=== PATIENT | male | born 1935 | race Caucasian/White ===

== ENCOUNTER 2019-04-12 18:14 | Observation (INO) ==
[2019-04-12] MEDS ORDERED: DUONEB (A & A) INH PRN (18:28)
[2019-04-12] MEDS ORDERED: ATIVAN PO PRN (18:30)
[2019-04-12] MEDS ORDERED: LASIX IV ONE ×2 (18:30→20:00)
[2019-04-12] MEDS: HYDROCODONE/APAP 7.5-325/15 ML PO PRN (20:38)
[2019-04-13] MEDS ORDERED: LASIX IV ONE ×2 (05:00→17:44)
[2019-04-13] MEDS: FLOMAX PO SCH ×2 (10:09→10:11)
[2019-04-13] MEDS: HYDROCODONE/APAP 7.5-325/15 ML PO PRN ×2 (10:23→19:25)
[2019-04-13 12:04] LABS: BASO# 0.04 X1000 (0.0-0.2); BASO% 0.3 % (0.0-0.8); EOS# 0.24 X1000 (0.0-0.7); EOS% 1.8 % (0.0-10.0); HEMATOCRIT 31.3 % (42.0-52.0); HEMOGLOBIN 9.8 g/dL (14.0-18.0); IMM GRAN# 0.03 X1000 (0.0-0.04); IMM GRAN% 0.2 % (0.0-0.5); LYMPH% 10.7 % (20.5-51.1); MCH 23.3 PG (27-31); MCHC 31.3 g/dL (33-37); MCV 74.5 FL (81-99); MONO# 1.12 X1000 (0.11-0.59); MONO% 8.6 % (1.7-9.3); MPV 9.1 FL (7.4-10.4); NEUT% 78.4 % (42.2-75.2); PLT 345 X1000 (130-400); RDW 18.2 % (11.5-14.5); WBC 13.03 X1000 (4.8-10.8)
[2019-04-13 12:14] LABS: AGAP 12; ALBUMIN 3.8 g/dL (3.5-5.0); ALKALINE PHOSPHATASE 174 U/L (32-122); BUN 26 mg/dL (8-22); CALCIUM 9.3 mg/dL (8.8-10.2); CHLORIDE 93 mmol/L (98-107); COSMO 272; CREATININE 1.1 mg/dL (0.7-1.2); ESTIMATED GFR > 60; GLUCOSE 121 mg/dL (70-104); GOT 15 U/L (10-34); GPT 8 U/L (10-44); POTASSIUM 4.3 mmol/L (3.5-5.1); SODIUM 133 mmol/L (136-145); TCO2 28 mmol/L (25-35); TOTAL PROTEIN 7.8 g/dL (6.3-8.3)
[2019-04-14 07:44] LABS: BASO# 0.02 X1000 (0.0-0.2); BASO% 0.2 % (0.0-0.8); EOS% 2.9 % (0.0-10.0); HEMATOCRIT 31.8 % (42.0-52.0); HEMOGLOBIN 9.7 g/dL (14.0-18.0); IMM GRAN# 0.02 X1000 (0.0-0.04); IMM GRAN% 0.2 % (0.0-0.5); LYMPH# 1.18 X1000 (1.2-3.4); LYMPH% 11.3 % (20.5-51.1); MCH 22.7 PG (27-31); MCHC 30.5 g/dL (33-37); MCV 74.5 FL (81-99); MONO# 1.21 X1000 (0.11-0.59); MONO% 11.6 % (1.7-9.3); MPV 9.3 FL (7.4-10.4); NEUT% 73.8 % (42.2-75.2); PLT 344 X1000 (130-400); RBC 4.27 XMIL (4.7-6.1); RDW 18.8 % (11.5-14.5); WBC 10.43 X1000 (4.8-10.8)
[2019-04-14 07:54] LABS: AGAP 15; ALBUMIN 3.7 g/dL (3.5-5.0); ALKALINE PHOSPHATASE 173 U/L (32-122); BUN 31 mg/dL (8-22); CALCIUM 9.2 mg/dL (8.8-10.2); CHLORIDE 94 mmol/L (98-107); COSMO 279; CREATININE 1.1 mg/dL (0.7-1.2); ESTIMATED GFR > 60; GLUCOSE 110 mg/dL (70-104); GOT 14 U/L (10-34); GPT 7 U/L (10-44); POTASSIUM 4.3 mmol/L (3.5-5.1); SODIUM 136 mmol/L (136-145); TCO2 27 mmol/L (25-35); TOTAL PROTEIN 7.2 g/dL (6.3-8.3)
[2019-04-14 09:07] LABS: BASO 1 % (0-1); EOS 3 % (1-10); LYMPHS 13 % (21-51); MONO 6 % (1-9); SEGS 77 % (42-75)
[2019-04-14] MEDS: FLOMAX PO SCH ×2 (09:51→09:53)
[2019-04-14] MEDS: HYDROCODONE/APAP 7.5-325/15 ML PO PRN (11:11)
--- NOTE | 2019-04-14 13:37 | ECHO REPORT ---
ORDER DATE: 04/13/2019 INDICATION: CHF. FINDINGS: 1. The right atrium appears mildly enlarged at 4.4 cm. 2. Mild tricuspid regurgitation. 3. Normal RV size and systolic function. 4. Mild pulmonic insufficiency. 5. Severe left atrial enlargement with a volume index of 60. 6. No mitral prolapse. No mitral stenosis. Moderate mitral regurgitation. 7. Normal LV size. The end-diastolic dimension is 5.1. Moderate left ventricular hypertrophy with a posterior and interventricular septal wall thickness of 1.5 cm each. Significant reduction in LV systolic function with an estimated EF of 20 to 25 percent and global hypokinesis. 8. Aortic valve is calcified, with restriction in motion. The peak gradient across the valve is 26, with a mean of 15. The valve area is 1.0 cm2 by continuity equation. The dimensionless index is 0.22 suggesting the possibility that this could be low output severe aortic stenosis. I do not have a previous echo to compare this to. There does not appear to be any aortic insufficiency. 9. Aorta appears slightly enlarged at 3.8 cm at the root. 10. No pericardial effusion is identified. cc: MD Charlie Velez MD
[2019-04-14 15:46] VITALS: BP 130/51
--- NOTE | 2019-04-15 08:00 | HISTORY AND PHYSICAL ---
Mr. Whitney is an 84-year-old clinic patient of [facility] who has a history of gastric cancer that was inoperable that ultimately led to him having a stent put in his stomach to allow food to pass. He has declined chemotherapy. He was in his usual state of health when he began to get short of breath and pale per his daughters, both of whom work in my office. He was brought in to the office and he had a hematocrit of 24 and we admitted him to the hospital yesterday, 04/11 for a 2 unit blood transfusion and iron therapy which he tolerated and was sent home but he was persistently short of breath. He came back in. We repeated his chest x-ray and he still had cardiomegaly and his basilar infiltrates were more prominent than they had been previously. BNP was greater than 5,000 and we elected to admit him to treat his heart failure. He has no history of heart failure or any therapy regarding heart failure ever. He has not had a heart attack. He had some COPD. He is not on blood pressure medicines. He does not have to our knowledge valvular heart disease or myocarditis. There is a possibility of him having a pericardial effusion with his cancer in that proximity to his heart. We continued his routine meds which were Flomax, hydrocodone, lorazepam and we gave him some Lasix 40 IV after giving him 40 p.o. in the office. PAST MEDICAL HISTORY: Otherwise is unremarkable. ALLERGIES: None. MEDICATIONS: I already previously mentioned. REVIEW OF SYSTEMS: He has generally maintained his weight. No significant weight loss. No issues with eating. He has not run a fever nor has he had any chills nor suspicions that he had any kind of cold type symptoms, simply shortness of breath. NOSE: No postpharyngeal drip. No nasal congestion. OROPHARYNX: No tonsillitis. CARDIOVASCULAR: He denies any chest pain, palpitations, edema, PND or orthopnea. He just gets short of breath with activity, with minimal activity. He has previously been walking up hills near his daughter's [place] the [place]. PULMONARY: He has not got a cough, not spitting up phlegm, just feels short of breath and lightheaded with activity. GASTROINTESTINAL: He is able to swallow. He is being certain he takes soft foods, chews his food and has not had any problems with obstructive symptoms suggesting that his shunt in his stomach was compromised. No bloody stools, black stools, tarry stools. SKIN: No rashes. [employer]: No headaches. No confusion. No strokes. No TIAs. NEUROMUSCULAR: Negative. Somewhat weak. ENDOCRINE: No diabetes. No thyroid disease. No hormone replacement therapy. PAST MEDICAL HISTORY: He has not had any significant health problems. PHYSICAL EXAMINATION: VITAL SIGNS: At the time of admission, his temperature was 98 degrees. His pulse was 83. Respiratory rate is 18. Blood pressure 131/62. O2 sat was 90 on room air. He is 5 feet 11 inches, 85 kilos. HEENT: Normocephalic. Eyes were PERRL. EOMs intact. SC clear. Fundi benign. Nares patent. NECK: Nares patent. Neck supple without carotid bruits, without thyromegaly, lymphadenopathy or jugular venous distention. No supraclavicular nodes. CHEST: Bilateral clear breath sounds. He was not particularly tachypneic. No wheezing. CARDIOVASCULAR: Regular rhythm and rate. No murmurs, gallops, clicks or rubs. ABDOMEN: Soft. No hepatosplenomegaly, no CVA tenderness. EXTREMITIES: Negative for clubbing, cyanosis. NEUROLOGICAL: Intact. ADMITTING DIAGNOSES: 1. Congestive heart failure. 2. History of blood loss anemia. 3. Iron deficiency. 4. History of adenocarcinoma of the stomach. cc: Charlie Hua MD
--- NOTE | 2019-04-15 08:15 | PROGRESS NOTE ---
DATE: 04/15/2019 84-year-old patient of mine who has adenocarcinoma of the stomach, iron deficiency and subsequently anemia with profound dyspnea. Was given blood, 2 units, and Imferon, went home and had some dyspnea. Brought back in because of heart failure. His vital signs on 04/13, temp was 97.9 degrees, pulse was 77, respiratory rate 18, BP 99/43. O2 sat was 96 on nasal cannula 2 liters. Previously, he had been walking and when he presented to the office and desaturating to 74 with walking, but at rest, it is 96 on 2 liters 02 nasal cannula. His hematocrit on 04/13 was 31.3, white count was 13,000 with a relatively normal diff, 78 neutrophils, 10.7 lymphocytes. Platelet count was 345,000. His chemistries: His sodium is 133, potassium 4.3, chloride 93, CO2 28, BUN 26, creatinine 1.1. GFR greater than 60. Glucose 121. Calcium 9.3. Total bilirubin 0.6. AST 15, ALT 8, alkaline phosphatase 174. Total protein normal. His lactate from the previous day was normal. The previous day his BNP was 5853 and currently is 5293. We are continuing to give him Lasix and with the administration of Lasix, he seems to be doing better. We ordered an echo on him. He has never had one previously and we are awaiting report. He seems to be breathing better but that is mostly based on him not moving about. If he moves about, he still gets short of breath. His BNPs are elevated and we will see if we can explain that. cc: Charlie Hua MD
--- NOTE | 2019-04-15 17:49 | DISCHARGE SUMMARY ---
ADMISSION DATE: 04/12/2019 DISCHARGE DATE: 04/14/2019 An 84-year-old clinic patient of [facility] who has known adenocarcinoma of the stomach and has a shunt in his stomach, has refused chemotherapy and radiation therapy. He had been in his usual state of health. Per him, [place], but in the last couple of weeks has gotten significantly short of breath and was brought in, initially with what appeared to be high output heart failure secondary to iron deficiency anemia, secondary to his bleeding from his adenocarcinoma of the stomach. So, he got two units of packed RBCs and tolerated the infusion. He was given some iron IV therapy and sent home, but continued to be short of breath, so he was brought back in the hospital on 04/12/2019 for some IV therapy for what we knew had a little bit of heart failure. We did an echo. His ejection fraction was 20% to 25% with global hypokinesis but more importantly he had severe left atrial enlargement and a calcified aortic valve with restricted motion with a gradient across the valve of 26. The valve area is 1 cm2. So, the dimension index is 0.22, suggests the possibility that he could be having low output secondary to severe aortic stenosis. We discussed that with him and his family. Our current goal is just maintaining his blood count and using as needed Lasix. I think with the blood count his symptoms will improve. Will follow him up in the office. He is to resume his regular medicines which are basically maintenance medicines for pain and anxiety. He will have some p.r.n. Lasix based on weight changes and pulmonary symptoms. cc: Charlie Hua MD
== END 2019-04-14 16:51 | disposition home or self-care (01) ==
LOC: P.DIRADM → P.MEDSURG 18:14
PROVIDERS: ADMIT Internal Medicine; ATTEND Internal Medicine
CPT/HCPCS: 36415; 36430; 71020; 71046; 80053; 82728; 83540; 83550; 83605; 83880; 85025; 86850; 86900; 86901; 86920; 93306; 94761; A9270; J1756; J1940; J7050; P9016

== ENCOUNTER 2019-04-23 11:48 | Inpatient (IN) ==
[2019-04-23] MEDS ORDERED: TYLENOL PO ONE (12:09)
[2019-04-23 12:33] LABS: BE -1.9 mmoll (-3.0-3.0); BLOOD TYPE ARTERIAL; HCO3-(ACT) 23.3 mmoll (20.0-26.0); METHB 1.3 % (0.0-1.5); PCO2(98.6) 24 mmHg (35-45); PO2(98.6) 50 mmHg (60-100); SAMPLE BLOOD; SAO2 88.3 % (95.0-100.0); THB 8.4 g/dL (11.5-17.4); pH(98.6) 7.53 (7.35-7.45)
[2019-04-23 12:37] LABS: ALLEN TEST YES; MODALITY ROOM AIR
[2019-04-23 12:38] LABS: O2HB 84.2 % (95.0-99.0)
--- NOTE | 2019-04-23 13:02 | Diag Imaging Result Doc PS360 ---
EXAM: CHEST-2 VIEWS HISTORY: fever sob chf TECHNIQUE: Chest two views COMPARISON: 04/12/2019 FINDINGS: The lungs are hyperexpanded. The heart is enlarged. There are increased interstitial markings in the lower lungs, right greater than left. These are slightly less pronounced than on the prior study. There is a small right pleural effusion. No change in the right portacatheter. No pneumothorax. IMPRESSION: Slight interval improvement. Electronically signed by Lewis Sosa 04/23/2019 1:00 PM
[2019-04-23 13:17] LABS: BASO# 0.01 X1000 (0.0-0.2); BASO% 0.1 % (0.0-0.8); HEMATOCRIT 24.2 % (42.0-52.0); HEMOGLOBIN 7.7 g/dL (14.0-18.0); IMM GRAN# 0.04 X1000 (0.0-0.04); IMM GRAN% 0.2 % (0.0-0.5); LYMPH# 0.56 X1000 (1.2-3.4); MCHC 31.8 g/dL (33-37); MCV 72.2 FL (81-99); MONO# 1.13 X1000 (0.11-0.59); MPV 9.8 FL (7.4-10.4); NEUT# 17.18 X1000 (1.4-6.5); NEUT% 90.7 % (42.2-75.2); PLT 312 X1000 (130-400); RBC 3.35 XMIL (4.7-6.1); RDW 20.7 % (11.5-14.5); WBC 18.92 X1000 (4.8-10.8)
[2019-04-23] MEDS ORDERED: LASIX IV ONE (13:25)
[2019-04-23 13:37] LABS: INR 1.16; PROTIME 15.4 Seconds (11.0-16.0)
[2019-04-23] MEDS: ROCEPHIN 1 GM in NS 50 ML IV SCH (13:43)
[2019-04-23 14:03] LABS: ALBUMIN 3.2 g/dL (3.5-5.0); CALCIUM 8.3 mg/dL (8.8-10.2); CREATININE 1.6 mg/dL (0.7-1.2); POTASSIUM 5.5 mmol/L (3.5-5.1); TOTAL BILIRUBIN 1.1 mg/dL (0.20-1.00)
--- NOTE | 2019-04-23 15:16 | PROVIDER DOCUMENTATION ---
This chart was entered by Lluvia Martinez Scribe, acting as scribe for Charlie Hua MD. HPI-General Adult - General Chief Complaint: Shortness of Breath Stated Complaint: SOB / CHEST SORE Time Seen by Provider: 04/23/19 12:18 Source: patient, family Allergies/Adverse Reactions: Patient Allergies Allergy/AdvReac Type Severity Reaction Status Date / Time No Known Allergies Allergy Verified 02/02/18 13:37 Home Medications: Home Medication List Medication Instructions Recorded Confirmed Last Taken Type Budesonide/Formoterol Fumarate 80 mcg INH BID MDD 160 06/03/17 04/23/19 04/22/19 History [Symbicort 80-4.5 Mcg Inhaler] Omeprazole 40 mg PO DAILY 02/02/18 04/23/19 04/22/19 History Sucralfate 1 gm PO BID 02/02/18 04/23/19 04/22/19 History Tamsulosin [Flomax] 0.4 mg PO DAILY 02/02/18 04/23/19 04/22/19 History Hydrocodone/Acetaminophen 10 ml PO Q6-8H PRN PRN 04/12/19 04/23/19 04/23/19 02:00 History [Hydrocodon-Acetamin 7.5-325/15] Lorazepam Oral Concentrate 2 ml PO Q8H PRN 04/12/19 04/23/19 04/22/19 History Polyethylene Glycol 3350 [Miralax] 119 gm PO DAILY 04/23/19 04/23/19 Unknown History - History of Present Illness -Gen Adult Nature of Presenting Problems: 84 y/o male presents to the ED with complaint of SOB and chest soreness/tightness. Temp 100.7 on arrival here. The patient has known gastric CA with previous shunt placement. Quality of Pain: reports: other (soreness) Onset/Duration: reports: gradual Timing: reports: still present Context/Activities at Onset: reports: light activity Modifying Factors: worse with: coughing Associated Symptoms: reports: cough, shortness of breath. denies: vomiting Similar Symptoms Previously?: No Recently seen or treated by another doctor?: No Review of Systems - Adult - REVIEW OF SYSTEMS - ADULT Constitutional: reports: no symptoms reported Eyes: reports: no symptoms reported Ears, Nose, Mouth & Throat: reports: no symptoms reported Cardiovascular: reports: no symptoms reported. denies: edema, orthopnea Respiratory: reports: cough, shortness of breath. denies: hemoptysis, wheezing Genitourinary: denies: dysuria, discharge, flank pain, hematuria Integumentary: reports: no symptoms reported Neurological: denies: dizziness/vertigo, headache/migraines, syncope Hematologic/Lymphatic: reports: no symptoms reported Allergic/Immunologic: reports: no symptoms reported Past History - Adult - PAST MEDICAL HISTORY-ADULT Review of Records: reports: Old Records Reviewed, Nursing Assessment Review, Medications Reviewed Major Childhood Illnesses: reports: denies history Cardiovascular: reports: murmur Respiratory: reports: COPD Gastrointestinal: reports: cancer (liver and stomach) Genitourinary: reports: denies history Musculoskeletal: reports: denies history Neurological: reports: denies history - PRIOR SURGERIES/PROCEDURES Surgical/Procedure History: reports: reviewed, not pertinent - IMMUNIZATION STATUS Childhood Immunizations: See Nurse Assessment Flu Vaccine: See Nurse Assessment - FAMILY HISTORY Family History: reviewed, not pertinent - SOCIAL HISTORY Smoking: other (former smoker) Substance Use: denies Physical Exam-General - PHYSICAL EXAM-ADULT Initial Vital Signs Reviewed: Yes - CONSTITUTIONAL General Appearance: appears well - EYES Eyes: PERRL/EOMI - HEAD, EARS, NOSE, MOUTH & THROAT HENMT: normocephalic/atraumatic, moist mucous membranes - NECK Neck: full range of motion - RESPIRATORY Respiratory: decreased breath sounds, rhonchi, wheezing, increased rate - CARDIOVASCULAR Cardiovascular: regular rate, rhythm, tachycardia - GASTROINTESTINAL (ABDOMEN) Abdominal Exam: soft - LYMPHATIC Lymphatic: no adenopathy - MUSCULOSKELETAL Back Exam: normal inspection, no CVA tenderness - SKIN Integumentary: normal color, normal turgor - NEUROLOGIC Neurologic: grossly normal - PSYCHIATRIC Psych/Mental Status: normal thought process Progress - PLAN OF CARE/RESULTS Progress/Plan/Lab Results: Vital Signs - 8 hr 04/23/19 11:55 Temperature 100.7 F H Pulse Rate 100 H Respiratory Rate 18 Blood Pressure 106/62 O2 Sat by Pulse Oximetry 92 L Orders Category Date Time Status Cardiac Monitoring DIRECTED Care 04/23/19 12:09 Active Nursing- Obtain EKG ONCE Care 04/23/19 12:09 Active CHEST-2 VIEWS [RAD] Stat Exams 04/23/19 12:09 Ordered ABG [RESP] Routine Lab 04/23/19 12:09 Ordered BLOOD CULTURE [BLDCUL] Stat Lab 04/23/19 12:09 Uncollected CBC WITH DIFF [HEME] Stat Lab 04/23/19 12:09 Ordered CK PROFILE [SP CHEM] Stat Lab 04/23/19 12:09 Ordered COMPREHENSIVE METABOLIC PANEL [CHEM] Stat Lab 04/23/19 12:09 Uncollected PRO B-NATRIURETIC PEPTIDE Stat Lab 04/23/19 12:09 Uncollected PROTIME WITH INR [COAG] Stat Lab 04/23/19 12:09 Uncollected TROPONIN T Stat Lab 04/23/19 12:09 Ordered Acetaminophen [Tylenol] Med 04/23/19 12:09 Discontinued 1,000 mg PO NOW ONE EKG [EKG] Stat Ther 04/23/19 12:09 Ordered Result Diagrams: 04/23/19 12:47 04/23/19 12:47 - REASSESSMENT Reassessment #1 Time Reassessed: 12:45 Status: unchanged Reassessment Comment: Discussed patient status in length with family Reassessment #2 Time Reassessed: 01:18 Status: unchanged Reassessment Comment: physician at bedside - XRAY 1 XRAY Study: Chest Comparison with other Films: changes noted (EXAM: CHEST-2 VIEWS HISTORY: fever sob chf TECHNIQUE: Chest two views COMPARISON: 04/12/2019 FINDINGS: The lungs are hyperexpanded. The heart is enlarged. There are increased interstitial markings in the lower lungs, right greater than left. These are slightly less pronounced than on the prior study. There is a small right pleural effusion. No change in the right portacatheter. No pneumothorax. IMPRESSION: Slight interval improvement. Electronically signed by Lewis Sosa 04/23/2019 1:00 PM) - CONSULTS/PCP/HOSPITALIST Notification #1 *Consult/PCP/Hospitalist*: Dr. Rush Time Discussed: 14:02 Reason/Comments: GI CA, hyponatremia, possible pneumonia Consult Disposition: Admit Departure - Departure Date of Disposition Decision: 04/23/19 Time of Disposition Decision: 15:15 DIAGNOSIS: Cancer of gastrointestinal tract, CHF (congestive heart failure), Hyponatremia, Pneumonia, Aortic stenosis with trileaflet valve Disposition: ADMITTED INPATIENT 09 Certified Medical Emergency: Emergent Condition: Serious - Critical Care Note This patient required my direct & personal management of CC.: Yes Total Time (mins): 32 Critical Care Statement: This patient required my direct personal management to treat or rule out processes, the absence of which, could potentiallly result in sudden, clinically significant life or limb threatening deterioration. Attestation - Physician/ STEPHANIE Attestation Patient care was provided by Advanced Practice Provider:: No The physician spent face to face time with patient:: Yes Advanced Practice Provider documentation review:: Supervising physician onsite and consulted in the evaluation and care of this patient. The physician did have a face to face encounter with the patient. This chart was documented by the indicated scribe, (Lluvia Martinez, Andrew) and accurately reflects the services I performed and decisions made by me, Charlie Hua MD, as attested by the provider's signature.
[2019-04-23] MEDS: CARAFATE LIQUID PO SCH ×2 (16:46→20:05)
[2019-04-23] MEDS: HYDROCODONE/APAP 7.5-325/15 ML PO SCH ×2 (16:46→20:05)
[2019-04-23] MEDS ORDERED: ASPIRIN PO ONE (17:45)
[2019-04-23] MEDS ORDERED: DOBUTAMINE 500/D5W 500 MG/250 ML IV.SOLN IV SCH (17:45)
--- NOTE | 2019-04-23 18:00 | EKG Report ---
Test Performed on : 04/23/2019 5:56:46 PM Test Reason : CHEST PAIN Blood Pressure : / mmHG Vent. Rate : 085 BPM Atrial Rate : 085 BPM P-R Int : 162 ms QRS Dur : 118 ms QT Int : 372 ms P-R-T Axes : 035 038 155 degrees QTc Int : 442 ms Normal sinus rhythm. Nonspecific intraventricular conduction delay ST & T wave abnormality, consider lateral ischemia Abnormal ECG No previous ECGs available Confirmed by Charlie Hua MD ([id number]) on 04/24/2019 10:21:20 AM
[2019-04-23] MEDS: SYMBICORT 80/4.5 MICROGM INHALER INH SCH (19:30)
[2019-04-23] MEDS: ATIVAN PO PRN (19:47)
[2019-04-23] MEDS: FLOMAX PO SCH (20:05)
--- NOTE | 2019-04-24 06:09 | EKG Report ---
Test Performed on : 04/24/2019 05:56:46 AM Test Reason : chf Blood Pressure : / mmHG Vent. Rate : 087 BPM Atrial Rate : 087 BPM P-R Int : 160 ms QRS Dur : 118 ms QT Int : 360 ms P-R-T Axes : 042 060 -73 degrees QTc Int : 433 ms Normal sinus rhythm. Nonspecific intraventricular conduction delay Nonspecific ST and T wave abnormality Abnormal ECG When compared with ECG of 23-APR-2019 17:56, (Unconfirmed) T wave inversion no longer evident in Anterior leads Confirmed by Charlie Hua MD ([id number]) on 04/24/2019 10:21:33 AM
[2019-04-24 06:38] LABS: CALCIUM 8.3 mg/dL (8.8-10.2); CREATININE 1.5 mg/dL (0.7-1.2); MAGNESIUM 2.2 mg/dL (1.5-2.7); POTASSIUM 4.4 mmol/L (3.5-5.1)
[2019-04-24] MEDS: SYMBICORT 80/4.5 MICROGM INHALER INH SCH ×2 (08:17→19:10)
[2019-04-24] MEDS: HYDROCODONE/APAP 7.5-325/15 ML PO SCH ×2 (11:13→20:15)
[2019-04-24] MEDS: CARAFATE LIQUID PO SCH ×2 (11:14→20:15)
[2019-04-24] MEDS: ASPIRIN PO SCH (11:14)
[2019-04-24] MEDS: LASIX IV SCH ×2 (11:33→20:15)
[2019-04-24] MEDS: ROCEPHIN 1 GM in NS 50 ML IV SCH (15:15)
[2019-04-24] MEDS ORDERED: SAMSCA PO ONE (16:06)
--- NOTE | 2019-04-24 16:09 | PROGRESS NOTE ---
DATE: 04/24/2019 SUBJECTIVE: This is an 84-year-old male who is currently in the Intensive Care Unit on a dobutamine drip. He has congestive heart failure complicated by adenocarcinoma of the stomach. Also, severe aortic stenosis. He was put on the drip to improve his diuresis which has not been very successful with just straight loop diuretics. He has lost a significant amount of weight, looks much better than he did. OBJECTIVE: Vital signs: Stable. Temperature is 98, pulse 92, respiratory rate 14, blood pressure 93/49 on 2L. LABORATORY DATA: Today, his sodium was 126, potassium 4.4, chloride 91, CO2 21, BUN 50, creatinine 1.5, estimated GFR 45, magnesium 2.2, calcium 8.3, albumin was 3.2. BNP is 3500. cc: Charlie Hua MD
[2019-04-24] MEDS: DOBUTAMINE 500/D5W 500 MG/250 ML IV.SOLN IV SCH (16:22)
--- NOTE | 2019-04-24 16:30 | HISTORY AND PHYSICAL ---
HISTORY OF PRESENT ILLNESS: The patient is a clinic patient of [facility] who presented to the emergency room complaining of shortness of breath. He has had some soreness and tightness in his chest. He had a low-grade temperature 100.7 on arrival. He has known adenocarcinoma of the stomach with a shunt through his pylorus. He has increased coughing. He is quickly desaturating, just generally feeling soreness all over. He had recently had an iron infusion followed by a prompt elevation in his RBCs, only to have that fall here recently. He had some heme trace positive stools. In the ER, his temperature was 100.7, pulse was 100, respiratory rate 18, blood pressure 106/62, O2 saturation 92%. He has oxygen at home. Moving around he gets very short of breath. He does not really have significant edema. He has a distended stomach. He is also noted to have a low sodium at 120, potassium 5.5, chloride 86, CO2 19, BUN 49, creatinine 1.6, glucose 145. He has been taking diuretic therapy to try to help his issues, but I think he has more abdominal fluid in his abdomen. His creatinine continues to fall. It is 24.2 and platelet count is 312,000, white count was 18,920. His chest x-ray showed hyperexpanded lungs. Heart was enlarged with increased interstitial markings in the lower lung, right greater than left. This slightly less pronounced than a previous study. There is a small right pleural effusion. No change in the Port-A-Cath. No pneumothorax. ALLERGIES: He has no medication allergies. CURRENT MEDICATIONS: Include, Symbicort 80/4.5 b.i.d., omeprazole 40 daily, Carafate 1 gram p.o. b.i.d., Flomax 0.4 daily, hydrocodone 10 mL p.r.n. q 6 to 8 hours for cancer pain, lorazepam 2 mg p.o. q 8 hours p.r.n. anxiety, and MiraLAX 119 grams p.o. daily. REVIEW OF SYSTEMS: The patient has not had any significant weight loss, but has generally gotten weaker here of late. No fever. No chills. No change in his visual peterson or appearance to his eyes, ears, nose, or throat. No pharyngitis, otitis, or sinusitis. Cardiovascular: No chest pain. No shortness of breath with minimal activity. He has no palpitations. Pulmonary: He has a cough and gets short of breath very easily, desaturates down into 84, per his monitor. He denies any hemoptysis or any wheezing. Genitourinary: No dysuria, pyuria, or flank pain. No hematuria. Skin: No rashes. No lesions. Neurological: Was symmetric, no neurological deficits. He has been having a headache lately in the posterior part of his head. He had a CT of the head that was negative for tumor. Sinus film was likewise negative. He had recent a Depo shot at the greater occipital nerve. Hematological: No clotting or bleeding disorder. Allergies: No asthma. No hay fever. PAST MEDICAL HISTORY: He has the liver and stomach cancer. He has a history of a murmur. Recently we did an echo and he has critical aortic stenosis and LVH, which is compounding his issues with fluids. He has not had any significant surgeries. SOCIAL HISTORY: He is a former smoker. Denies substance abuse. PHYSICAL EXAMINATION: At the time of admission VITAL SIGNS: As previously stated. HEENT: Head was normocephalic. Eyes, ears, nose, and throat had pale conjunctiva, otherwise negative. Nares patent. Oropharynx negative. NECK: Midline trachea. No lymphadenopathy. No jugular venous distention. No thyromegaly. CHEST: Diminished breath sounds throughout. Increased AP diameter. Flat diaphragms. He is tripoding a little bit. CARDIOVASCULAR: He had a regular rhythm and rate. No gallops, clicks, or rubs. He does have a 3/6 murmur at his left sternal border, probably from his aortic stenosis. ABDOMEN: Obese. No hepatosplenomegaly. No CVA tenderness. Positive bowel sounds. EXTREMITIES: Negative for cyanosis, clubbing or edema. NEUROLOGICAL: Intact. ADMITTING DIAGNOSES: 1. Congestive heart failure. 2. Chronic obstructive pulmonary disease. 3. Adenocarcinoma of the stomach with shunt in his pylorus. 4. Anemia, iron loss. We admitted him to the floor intending to diurese and correct his sodium and hematocrit. cc: Charlie Hua MD
--- NOTE | 2019-04-24 16:53 | CARDIOLOGY PROGRESS NOTE ---
DATE: 04/24/2019 SUBJECTIVE: Mr. Whitney reports he feels much better today. He is tolerating oral intake. PHYSICAL: He was actually febrile yesterday. Not febrile today. His heart rate is 86, his blood pressure is 91/53. His I's and O's are negative on the order of a total net negative of 1.7 L.General: No acute distress. Cardiovascular: He sounds to be in a regular rate and rhythm. He does not have any obvious murmurs. He has no S3. He has no lower extremity edema. His extremities seem warmer today. LABS: His sodium is 126, potassium 4.4, BUN 50, creatinine is 1.5 which is slightly better than yesterday. His proBNP continues to be greater than 35,000. He continues on Lasix which has been started at 40 IV b.i.d. He is on dobutamine at 3 mcg. ASSESSMENT: Mr. Whitney is an 84-year-old gentleman who presented in low output heart failure yesterday. PLAN: We will plan on increasing his dobutamine to 5 mcg. Will continue him on the Lasix. I will give him a dose of Samsca today recheck his labs and will plan on discontinuing the dobutamine around 4 p.m. tomorrow which will give him roughly 48 hours worth of medication. I would strongly consider hospice evaluations in this patient given his decisions to forego any further cancer treatment as well as his severe aortic stenosis and heart failure. Unfortunately, his hemodynamics currently are limiting addition of medications. cc: MD Charlie Velez MD
[2019-04-24] MEDS: ATIVAN PO PRN (20:16)
[2019-04-24] MEDS: FLOMAX PO SCH (20:16)
--- NOTE | 2019-04-25 04:13 | CARDIOLOGY CONSULTATION ---
DATE: 04/23/2019 CHIEF COMPLAINT: Shortness of breath . HISTORY OF PRESENT ILLNESS: Mr. Whitney is an 84-year-old white male with a history of gastric cancer that resulted in subsequent esophageal stent. He decided to discontinue treatment around 1 year ago. He reports the onset of shortness of breath it sounds like quite some time ago; ultimately resulted in 2 units of blood as well as a iron therapy. He continued to be short of breath and was found to have some cardiomegaly. An echo was done showing severe aortic stenosis and reduced heart function. He subsequently was admitted for further treatment having continued shortness of breath. He reports some issues with orthopnea. No lower extremity edema. He is a difficult historian, but it sounds like he has had some increased abdominal girth as well as weight gain. PAST MEDICAL HISTORY: His past medical history is significant for: 1. Systolic heart failure. Unclear if this is ischemic or nonischemic. 2. Probable severe low output aortic stenosis as evidenced by echocardiogram in April 2019 showing an EF of 20% to 25%, dimensionless index of 0.22, valve area of 1.0. 3. Gastric cancer, currently not receiving treatment. Last study in August 2018 showing metastases to the right lobe of the liver. 4. COPD. SOCIAL HISTORY: His daughter is present with him today. He does not smoke. FAMILY HISTORY: Family history of hypertension. REVIEW OF SYSTEMS: A 10-system review of systems is negative except for those things mentioned in the HPI. PHYSICAL EXAMINATION: vital signs: He was febrile to 100.7 at noon today. Heart rate 85, blood pressure 93/57, his systolics have been in the 90s to low 100s. His I's and O's are really nonexistent this hospitalization. General: Elderly-appearing male in no acute distress. HEENT: Oropharynx moist. Poor dentition. Eye examination has pink conjunctivae and white sclerae. Neck: His neck examination shows no obvious thyromegaly or thyroid tenderness. Cardiovascular: He sounds to be in a regular rate and rhythm. I do not hear any obvious murmurs. He has very distant heart sounds. He has cool distal extremities from the lower hameed distally. He has no lower extremity edema. His JVP was difficult to visualize. chest: His chest exam is relatively clear to auscultation bilaterally. He has no increased work of breathing. Abdomen: His abdomen is soft, very protuberant, nontender. Skin: Warm and dry throughout without any rashes. Neurologic: He is moving all extremities well. No lateralizing deficits. Psychiatric: Alert and oriented and pleasant. Normal mood and affect. PERTINENT DATA: Chest x-ray shows hyperexpanded lungs, cardiomegaly, increased interstitial markings in the lower lungs right greater and left. Small right pleural effusion. He has no EKG this hospitalization. His laboratory data shows a white count of 18.9, his hematocrit is 24.2 which has steadily declined from the 6th when it was 31.8. He has an iron deficiency anemia it appears based on a low MCV. His INR is 1.1. His ABG was reviewed showing a pH of 7.53, pCO2 of 24. His sodium is 120, his potassium is 5.5, his BUN is 49, and creatinine is 1.6. His troponin is 1.68. His proBNP is greater than 35,000. ASSESSMENT: Mr. Whitney is an 84-year-old gentleman with metastatic gastric cancer, likely severe aortic stenosis, and what appears to be low-output heart failure. PLAN: We will likely transfer him over to the ICU. It seems like he is a DNR. I will insure that they contact Dr. Hua to discuss this with the patient. It appears that it has been ordered today. We will likely start him on an inotrope. Notably, he does have a positive set of cardiac enzymes. The patient appears to be poorly perfusing his kidneys based on his rising creatinine and markedly elevated proBNP as well as low-sodium resulting in volume overload in his current low-output state. I discussed this extensively with the patient as well as the daughter. The patient is a difficult historian and has questionable understanding of the current situation, but it seems his daughter is aware of what is going on and seems to be in agreement with the plan. The patient has had an advanced directive filled out before indicating that he would like to be a DNR. That is what we are currently operating on presently. cc: MD Charlie Velez MD
[2019-04-25 06:28] LABS: BASO# 0.03 X1000 (0.0-0.2); BASO% 0.3 % (0.0-0.8); EOS# 0.22 X1000 (0.0-0.7); HEMATOCRIT 24.8 % (42.0-52.0); HEMOGLOBIN 7.6 g/dL (14.0-18.0); IMM GRAN# 0.03 X1000 (0.0-0.04); IMM GRAN% 0.3 % (0.0-0.5); LYMPH# 1.01 X1000 (1.2-3.4); LYMPH% 9.1 % (20.5-51.1); MCH 22.4 PG (27-31); MCHC 30.6 g/dL (33-37); MCV 73.2 FL (81-99); MONO# 1.22 X1000 (0.11-0.59); MONO% 10.9 % (1.7-9.3); NEUT# 8.65 X1000 (1.4-6.5); NEUT% 77.4 % (42.2-75.2); PLT 386 X1000 (130-400); RBC 3.39 XMIL (4.7-6.1); RDW 20.4 % (11.5-14.5); WBC 11.16 X1000 (4.8-10.8)
[2019-04-25 06:45] LABS: ALBUMIN 3.1 g/dL (3.5-5.0); CALCIUM 8.6 mg/dL (8.8-10.2); CREATININE 1.4 mg/dL (0.7-1.2); POTASSIUM 4.3 mmol/L (3.5-5.1); TOTAL BILIRUBIN 0.3 mg/dL (0.20-1.00); TOTAL PROTEIN 6.8 g/dL (6.3-8.3)
[2019-04-25] MEDS: SYMBICORT 80/4.5 MICROGM INHALER INH SCH ×2 (08:00→19:15)
[2019-04-25] MEDS: HYDROCODONE/APAP 7.5-325/15 ML PO SCH ×2 (08:59→20:07)
[2019-04-25] MEDS: CARAFATE LIQUID PO SCH ×2 (08:59→20:06)
[2019-04-25] MEDS: ASPIRIN PO SCH (09:01)
[2019-04-25] MEDS: LASIX IV SCH ×2 (09:01→20:07)
[2019-04-25] MEDS ORDERED: CITRATE OF MAGNESIA PO ONE (09:24)
[2019-04-25 12:43] LABS: OCCULT BLOOD 1 POSITIVE (NEGATIVE)
[2019-04-25] MEDS ORDERED: SAMSCA PO ONE (13:16)
[2019-04-25] MEDS: ROCEPHIN 1 GM in NS 50 ML IV SCH (14:02)
[2019-04-25] MEDS ORDERED: LANOXIN IV ONE (15:50)
[2019-04-25] MEDS: DOBUTAMINE 500/D5W 500 MG/250 ML IV.SOLN IV SCH (16:13)
[2019-04-25 17:13] LABS: IRON SATURATION 5 %; TIBC 256 ug/dL; TOTAL IRON 14 ug/dL (53-167); UNBOUND IRON 242 ug/dL (112-346)
--- NOTE | 2019-04-25 18:54 | PROGRESS NOTE ---
DATE: 04/25/2019 SUBJECTIVE: The patient reports feeling considerably better. He denies any shortness of breath or chest discomfort. OBJECTIVE: Blood pressure is 107/51, heart rate 86, oxygen saturation 96% on room air. Jugular venous is evident, consistent with elevated central venous pressure. Chest is clear to auscultation. Cardiac: Regular rate and rhythm with a grade 1 to 2/6 systolic murmur at the left upper sternal border and right upper sternal border. No gallop could be appreciated. Extremities are without edema. DIAGNOSTIC DATA: White blood cell count is 11.16, hematocrit 24.8, hemoglobin 7.6, MCV is 73.2, platelet count is 386. Sodium 132, potassium 4.3, chloride 93, carbon dioxide 24, BUN is 46, creatinine 1.4, glucose 108. Pro-B natriuretic peptid level is 29,578. IMPRESSION: 1. Acute on chronic systolic heart failure. The patient still manifests some signs of volume excess, particularly right-sided heart failure. 2. Severe cardiomyopathy. 3. Aortic stenosis. 4. Gastric adenocarcinoma. 5. Significant anemia, microcytic. RECOMMENDATIONS: 1. Continue diuresis as permitted by hemodynamics. 2. Overall prognosis is poor. cc: MD Charlie Connolly MD
[2019-04-25] MEDS: FLOMAX PO SCH (20:06)
[2019-04-26] MEDS: SYMBICORT 80/4.5 MICROGM INHALER INH SCH ×2 (08:12→19:40)
[2019-04-26] MEDS: MIRALAX PO SCH (08:37)
[2019-04-26] MEDS: HYDROCODONE/APAP 7.5-325/15 ML PO SCH ×2 (08:37→20:05)
[2019-04-26] MEDS: LANOXIN PO SCH (08:37)
[2019-04-26] MEDS: CARAFATE LIQUID PO SCH ×2 (08:37→20:01)
[2019-04-26] MEDS: ASPIRIN PO SCH (08:38)
[2019-04-26] MEDS: LASIX IV SCH ×2 (08:38→20:01)
[2019-04-26 09:30] LABS: ALBUMIN 3.6 g/dL (3.5-5.0); CALCIUM 9.1 mg/dL (8.8-10.2); CREATININE 1.2 mg/dL (0.7-1.2); POTASSIUM 4.6 mmol/L (3.5-5.1); TOTAL BILIRUBIN 0.3 mg/dL (0.20-1.00); TOTAL PROTEIN 7.8 g/dL (6.3-8.3)
[2019-04-26 10:36] LABS: BASO# 0.04 X1000 (0.0-0.2); BASO% 0.3 % (0.0-0.8); EOS# 0.33 X1000 (0.0-0.7); EOS% 2.5 % (0.0-10.0); HEMATOCRIT 29.6 % (42.0-52.0); HEMOGLOBIN 8.9 g/dL (14.0-18.0); IMM GRAN# 0.04 X1000 (0.0-0.04); IMM GRAN% 0.3 % (0.0-0.5); LYMPH# 0.99 X1000 (1.2-3.4); LYMPH% 7.6 % (20.5-51.1); MCH 22.4 PG (27-31); MCHC 30.1 g/dL (33-37); MCV 74.4 FL (81-99); MONO# 0.94 X1000 (0.11-0.59); MONO% 7.2 % (1.7-9.3); MPV 8.9 FL (7.4-10.4); NEUT# 10.64 X1000 (1.4-6.5); NEUT% 82.1 % (42.2-75.2); PLT 526 X1000 (130-400); RBC 3.98 XMIL (4.7-6.1); RDW 20.7 % (11.5-14.5); WBC 12.98 X1000 (4.8-10.8)
[2019-04-26 10:40] LABS: ANISOCYTOSIS 1+; LYMPHS 7 % (21-51); MONO 7 % (1-9); SEGS 86 % (42-75)
[2019-04-26 10:41] LABS: POIKILOCYTOSIS OCCASIONAL
--- NOTE | 2019-04-26 13:25 | Diag Imaging Result Doc PS360 ---
EXAM: CHEST-2 VIEWS HISTORY: cough TECHNIQUE: Chest two views COMPARISON: 04/23/2019 FINDINGS: Interval decrease in the right lower lung infiltrates. Cardiomegaly remains. The lungs are hyperexpanded and the pulmonary vessels are small. No change in the right-sided portacatheter. IMPRESSION: Continued interval improvement Electronically signed by Lewis Sosa 04/26/2019 1:23 PM
[2019-04-26] MEDS ORDERED: VENOFER 200 MG in NS 150 ML IV ONE (14:00)
[2019-04-26] MEDS: ROCEPHIN 1 GM in NS 50 ML IV SCH (14:00)
[2019-04-26] MEDS: FLOMAX PO SCH (20:01)
[2019-04-27] MEDS: SYMBICORT 80/4.5 MICROGM INHALER INH SCH ×2 (07:25→20:00)
[2019-04-27] MEDS: MIRALAX PO SCH (08:50)
[2019-04-27] MEDS: LANOXIN PO SCH (08:50)
[2019-04-27] MEDS: LASIX IV SCH ×2 (08:50→20:23)
[2019-04-27] MEDS: ASPIRIN PO SCH (08:50)
[2019-04-27] MEDS: CARAFATE LIQUID PO SCH ×2 (08:50→20:23)
[2019-04-27] MEDS: HYDROCODONE/APAP 7.5-325/15 ML PO SCH (09:00)
[2019-04-27] MEDS: ROCEPHIN 1 GM in NS 50 ML IV SCH (13:57)
[2019-04-27] MEDS ORDERED: ZOFRAN IV ONE ×2 (14:31→16:14)
--- NOTE | 2019-04-27 17:40 | Diag Imaging Result Doc PS360 ---
EXAM: ABDOMEN FLAT/UPRIGHT INDICATION: vomiting, abd pain TECHNIQUE: 3 views COMPARISON: 03/11/2018 FINDINGS: There is a stable Wallstent associated with the pylorus of the stomach. The stomach does not appear to be significantly gas distended. There are unremarkable bowel gas and stool patterns. There is no evidence of bowel obstruction. There is no evidence of large volume free abdominal gas. IMPRESSION: No evidence of acute pathology by plain radiograph. Electronically signed by Saran Machado 04/27/2019 5:38 PM
[2019-04-27] MEDS: PHENERGAN IV PRN ×2 (18:30→23:30)
[2019-04-27] MEDS: SODIUM CHLORIDE 0.9% INJ PRN ×2 (18:31→23:31)
[2019-04-27] MEDS: HYDROCODONE/APAP 7.5-325/15 ML PO PRN ×2 (18:33→23:40)
[2019-04-27] MEDS: FLOMAX PO SCH (20:23)
[2019-04-27] MEDS: NS 1,000 ML IV SCH (21:31)
[2019-04-28] MEDS: NS 1,000 ML IV SCH ×2 (06:31→16:35)
[2019-04-28 07:18] LABS: ALBUMIN 3.3 g/dL (3.5-5.0); CREATININE 1.2 mg/dL (0.7-1.2); TOTAL BILIRUBIN 0.3 mg/dL (0.20-1.00); TOTAL PROTEIN 6.7 g/dL (6.3-8.3)
[2019-04-28 07:19] LABS: BASO# 0.04 X1000 (0.0-0.2); BASO% 0.3 % (0.0-0.8); EOS# 0.14 X1000 (0.0-0.7); EOS% 0.9 % (0.0-10.0); HEMATOCRIT 29.7 % (42.0-52.0); HEMOGLOBIN 8.8 g/dL (14.0-18.0); IMM GRAN# 0.06 X1000 (0.0-0.04); IMM GRAN% 0.4 % (0.0-0.5); LYMPH# 1.34 X1000 (1.2-3.4); MCH 22.2 PG (27-31); MCHC 29.6 g/dL (33-37); MCV 74.8 FL (81-99); MONO# 1.43 X1000 (0.11-0.59); MONO% 9.7 % (1.7-9.3); MPV 9.1 FL (7.4-10.4); NEUT% 79.7 % (42.2-75.2); PLT 576 X1000 (130-400); RBC 3.97 XMIL (4.7-6.1); RDW 21.1 % (11.5-14.5); WBC 14.81 X1000 (4.8-10.8)
[2019-04-28 07:58] LABS: ANISOCYTOSIS 2+; LYMPHS 12 % (21-51); MONO 4 % (1-9); POIKILOCYTOSIS 1+; SEGS 84 % (42-75)
[2019-04-28 07:59] LABS: MICROCYTOSIS 1+
[2019-04-28] MEDS: LASIX IV SCH ×2 (08:16→20:47)
[2019-04-28] MEDS: ASPIRIN PO SCH (08:20)
[2019-04-28] MEDS: CARAFATE LIQUID PO SCH ×2 (08:21→20:46)
[2019-04-28] MEDS: LANOXIN PO SCH (08:21)
[2019-04-28] MEDS: MIRALAX PO SCH (08:23)
[2019-04-28] MEDS: SYMBICORT 80/4.5 MICROGM INHALER INH SCH ×2 (09:47→19:01)
[2019-04-28] MEDS: ROCEPHIN 1 GM in NS 50 ML IV SCH (13:04)
[2019-04-28] MEDS: HYDROCODONE/APAP 7.5-325/15 ML PO PRN ×2 (16:36→22:47)
--- NOTE | 2019-04-28 17:51 | CARDIOLOGY PROGRESS NOTE ---
DATE: 04/28/2019 SUBJECTIVE: Mr. Whitney reports he feels much better today. He has no acute complaints presently. OBJECTIVE: He is afebrile. Heart rate is 84, blood pressure is 112/46.General: He is no acute distress. Cardiovascular: He sounds to be in a regular rate and rhythm. He has a 2/6 systolic murmur at the right upper sternal border. No lower extremity edema. Chest: Exam sounds relatively clear. He has no increased work of breathing. Abdomen: Soft. PERTINENT DATA: White count 14.8, hematocrit is 29. His platelet count is 576,000. His sodium is 134, potassium is 5, BUN 38, creatinine is 1.2. ASSESSMENT: Mr. Whitney is an 84-year-old gentleman who presents with complaints of shortness of breath, was noted to be in heart failure with severe aortic stenosis. PLAN: I will try to add in a low dose of beta-jesús and JHONY inhibitor today to try to improve his medication regimen for heart failure. I agree with continuation of the digoxin for symptom benefit. I do not have any acute recommendations presently. He certainly would be a candidate for palliative services. I will stop his IV fluids. cc: MD Charlie Velez MD
--- NOTE | 2019-04-28 18:13 | PROGRESS NOTE ---
DATE: 04/26/2019 SUBJECTIVE: To date, his microbiology is no growth in his cultures. OBJECTIVE: Vital Signs: Currently temperature is 97.9, pulse 79, respiratory rate 20, BP 123/54, 02 saturation 98% on room air. Respiratory: He is breathing better. He is not gasping for air. LABORATORY DATA: White count 12,980, hematocrit 29.6, platelet count 526. He has a left shift. He had a stool done on April 25 that was positive. Chemistries: Sodium 135, potassium 4.6, chloride 93. CO2 is 29, BUN 41, creatinine 1.2, glucose 146. Albumin is 3.6. His I's and O's are negative today. ASSESSMENT/PLAN: He has not had a chest x-ray. We are going to go ahead and get him a chest x- ray today and take him downstairs and see what his chest x-ray looks like. cc: Charlie Hua MD
--- NOTE | 2019-04-28 18:33 | PROGRESS NOTE ---
DATE: 04/25/2019 SUBJECTIVE: He has improved significantly on his dobutamine drip. He has had some generally negative fluid balance. CBC today, hematocrit is 24.8, white count 11,116, platelet count 386. Sodium 132, potassium 4.3, chloride 93, CO2 24, BUN 46, creatinine 1.4, GFR 49. proBNP 29,578. He is eating, but not eating that much. He is generally much better than he has been. He has had a significant improvement in his hematocrit. No transfusion. His iron studies showed iron of 14 and saturation was 5. We are going to ask Pharmacy to calculate an infusion for some iron. cc: Charlie Hua MD
[2019-04-28] MEDS: FLOMAX PO SCH (20:46)
[2019-04-28] MEDS ORDERED: PRINIVIL PO SCH (21:00)
[2019-04-28] MEDS ORDERED: TOPROL XL PO SCH (21:00)
[2019-04-28] MEDS: PHENERGAN IV PRN (22:47)
[2019-04-29] MEDS: PHENERGAN IV PRN (07:30)
[2019-04-29] MEDS: SODIUM CHLORIDE 0.9% INJ PRN (07:30)
[2019-04-29] MEDS: SYMBICORT 80/4.5 MICROGM INHALER INH SCH (08:56)
[2019-04-29] MEDS: LASIX IV SCH (09:24)
[2019-04-29] MEDS: MIRALAX PO SCH (09:24)
[2019-04-29] MEDS: CARAFATE LIQUID PO SCH (09:24)
[2019-04-29] MEDS: ASPIRIN PO SCH (09:24)
[2019-04-29] MEDS: LANOXIN PO SCH (09:24)
[2019-04-29] MEDS: HYDROCODONE/APAP 7.5-325/15 ML PO PRN (09:25)
--- NOTE | 2019-04-29 09:37 | CARDIOLOGY PROGRESS NOTE ---
DATE: 04/26/2019 CHIEF COMPLAINT: Shortness of breath. SUBJECTIVE: Mr. Whitney is doing much better. He is not on any drip. He is getting some iron supplements. His chest x-ray today shows continued interval improvement. His telemetry shows sinus rhythm. He is sitting at the bedside with his family. He seems to be in a good mood. He is not in any pain or distress. OBJECTIVE: Temperature 97.9 degrees, pulse 79, respirations 20, blood pressure 123/54. Alert, awake, oriented clinically. HEENT: Unremarkable. Chest: Clear to auscultation and percussion. Heart sounds regular rhythm. Soft systolic murmur. Abdomen: Not tender. Extremities: Show no edema. Neurologic: Follows commands. Moves all 4 extremities. LABORATORY DATA: Hemoglobin is 8.9, hematocrit 29.6, MCV 74.4. Sodium is 135, potassium 4.6, BUN 41, creatinine 1.2. Pro-BNP has dropped to 29,508. IMPRESSION: 1. Patient who presented with acute on chronic systolic heart failure. 2. Patient with prior severe aortic stenosis and low ejection fraction. 3. Chronic obstructive pulmonary disease. 4. History of gastric cancer with microcytic/hypochromic anemia. RECOMMENDATION; At this time we will continue present supportive measures. Patient seems to be improving. He can probably be transferred to step-down unit. cc: MD Charlie Coe MD
--- NOTE | 2019-04-29 11:38 | PROGRESS NOTE ---
DATE: 04/28/2019 SUBJECTIVE: He has been accepted to a long-standing facility in [facility]. He is going to go down there to try to rehab a bit since he had this recent setback with dyspnea and vomiting and pain. OBJECTIVE: His vital signs are temperature 97.7, pulse 89, respiratory rate was 12, blood pressure 140/60, O2 saturation 92%. His family is present, his daughter who is his primary taxonomist. We are eager to get him to this facility. LABORATORY DATA: His sodium is 134, potassium 5, chloride 93, CO2 31, BUN 38, creatinine 1.2, glucose is 131, GFR 58. Liver functions: Alkaline phosphatase was a little bit high at 117, albumin is low at 3.3. His white count is 14,080. Hematocrit is 29.7. Platelet count is 576,000. The patient had some nausea, not sure what exactly happened but finally he has responded to some Zofran. Off and on, he is intermittently with more pain. It is nondescript in location, kind of more in the lower abdomen. PLAN: Our tentative plan is to let him go home on 04/29/2019. cc: Charlie Hua MD
[2019-04-29 12:31] VITALS: BP 88/44
--- NOTE | 2019-04-29 14:11 | DISCHARGE SUMMARY ---
ADMISSION DATE: 04/23/2019 DISCHARGE DATE: 04/29/2019 HISTORY OF PRESENT ILLNESS: Mr. Whitney is a patient of mine that has a history of COPD from a long-standing history of smoking. Recently he was found to have an adenocarcinoma in the stomach with a shunt the size of a straw between his stomach and his small intestines. He refused surgical and chemotherapy. He is being treated symptomatically with special attention paid to his shunt and he has pureed foods and soft foods. He tolerates this and he knows what he needs to take. He came into the hospital because of recent shortness of breath and he was found to be anemic with a heme positive stool, trace positive, and low iron. We thought he had an iron deficiency anemia based on blood loss perhaps from his adenocarcinoma. We gave him iron. His hematocrit responded and then it drifted back into the 24s and then it responded again and we gave him another infusion of iron. Also along the way we found out that he had critical aortic stenosis and a left ventricular ejection fraction of 20%. So, he at an issue for heart failure. With his low output we had to use dobutamine and we have tried Lanoxin but right now he is doing well without it. His chest x-ray has returned virtually to normal. We are sending him home on some maintenance therapy. We will consider giving him Lasix and digoxin as indicated by his respiratory status. He is being discharged for some rehab and will follow him in the office. cc: Charlie Hua MD
--- NOTE | 2019-04-29 14:27 | PROGRESS NOTE ---
DATE: 04/27/2019 SUBJECTIVE: An 84-year-old male with adenocarcinoma of the stomach that is unresectable and he has declined chemotherapy. He has been retaining a bit of fluid. He has low cardiac output and aortic stenosis and we have given him dobutamine and have significantly improved his breathing. Dobutamine has been stopped and we are going to try Lanoxin. OBJECTIVE: Vital Signs: Temperature 98, pulse 84, respiratory rate 16, BP 135/63, 02 saturation 97% on 2 liters. His stools, he has had some issues with constipation but has been having stools not grossly bloody. His belly is distended but not particularly tender. He is breathing fine. ASSESSMENT/PLAN: Plan is to get him into a shelter facility. His blood cultures have been negative. He looks fine other than waxing and waning appetite. cc: Charlie Hua MD
== END 2019-04-29 14:25 | DRG 292 ==
LOC: P.ED 11:48 → P.MEDSURG 14:23 → P.ICU 18:37
PROVIDERS: ADMIT Internal Medicine; ATTEND Internal Medicine
CPT/HCPCS: 70470; 71020; 71046; 74019; 74020; 80048; 80053; 80162; 82270; 82550; 82728; 82805; 83540; 83550; 83735; 83880; 84484; 85025; 85610; 87040; 93005; 93010; 94640; 94761; 96365; 96375; 97163; 97530; 99285; 99291; A9270; J0696; J1160; J1250; J1756; J1940; J2405; J2550; J7030; Q9967

== ENCOUNTER 2019-04-29 21:28 | Inpatient (IN) ==
[2019-04-29 22:42] LABS: BASO# 0.04 X1000 (0.0-0.2); BASO% 0.2 % (0.0-0.8); EOS# 0.06 X1000 (0.0-0.7); EOS% 0.3 % (0.0-10.0); HEMATOCRIT 23.4 % (42.0-52.0); IMM GRAN# 0.13 X1000 (0.0-0.04); IMM GRAN% 0.6 % (0.0-0.5); LYMPH% 6.8 % (20.5-51.1); MCH 22.5 PG (27-31); MCHC 29.9 g/dL (33-37); MCV 75.2 FL (81-99); MONO# 1.36 X1000 (0.11-0.59); MONO% 6.2 % (1.7-9.3); MPV 8.8 FL (7.4-10.4); NEUT# 18.84 X1000 (1.4-6.5); NEUT% 85.9 % (42.2-75.2); PLT 576 X1000 (130-400); RBC 3.11 XMIL (4.7-6.1); RDW 21.6 % (11.5-14.5); WBC 21.93 X1000 (4.8-10.8)
[2019-04-29] MEDS ORDERED: HYDROCODONE/APAP 7.5-325/15 ML PO ONE (22:46)
[2019-04-29 22:52] LABS: ALBUMIN 3.2 g/dL (3.5-5.0); CALCIUM 8.5 mg/dL (8.8-10.2); CREATININE 1.4 mg/dL (0.7-1.2); POTASSIUM 4.9 mmol/L (3.5-5.1); TOTAL BILIRUBIN 0.2 mg/dL (0.20-1.00); TOTAL PROTEIN 6.5 g/dL (6.3-8.3)
[2019-04-29] MEDS ORDERED: VANCOMYCIN 1 GM/NS 1 GM/250 ML IVPB IV ONE (22:56)
[2019-04-29] MEDS ORDERED: NS 1,000 ML IV ONE (22:56)
[2019-04-29] MEDS ORDERED: NS 500 ML IV ONE (22:56)
[2019-04-29] MEDS ORDERED: ZOSYN 3.375 GM in NS 50 ML IV ONE (22:57)
[2019-04-29 23:08] LABS: BILIRUBIN URINE NEGATIVE (NEGATIVE); BLOOD URINE 1+ (NEGATIVE); CLARITY CLEAR (CLEAR); COLOR YELLOW; GLUCOSE URINE NEGATIVE (NEGATIVE); KETONE URINE NEGATIVE (NEGATIVE); LEUKOCYTES URINE NEGATIVE (NEGATIVE); NITRITE URINE NEGATIVE (NEGATIVE); PROTEIN URINE NEGATIVE (NEGATIVE); SP GRAVITY URINE 1.015; UROBILINOGEN URINE NORMAL
[2019-04-29 23:12] LABS: URINE BACTERIA 2+ /HFP; URINE CAST NONE SEEN /LPF; URINE CRYSTAL NONE SEEN /HPF; URINE EPITHELIAL CELLS <10 /HPF (<10); URINE RBC <10 /HPF (<10); URINE SOURCE CLEAN CATCH; URINE WBC 0-2 /HPF (<10); URINE YEAST NONE SEEN /HPF
[2019-04-30] MEDS ORDERED: NS 1,000 ML IV ONE ×2 (01:48→11:53)
[2019-04-30] MEDS: ZOFRAN IV PRN ×3 (03:13→22:30)
--- NOTE | 2019-04-30 04:43 | Diag Imaging Result Doc PS360 ---
EXAM: CT ABDOMEN/PELVIS W/O CONTRAST HISTORY: leukocytosis TECHNIQUE: CT abdomen and pelvis without contrast COMPARISON: 08/24/2018 FINDINGS: Emphysema. The gallbladder has been removed. Unchanged gastric stent. 6 cm hypodense liver lesion is unchanged. No other hepatic abnormality identified on this noncontrasted exam. Normal spleen. There is fatty infiltration of the pancreas. Normal adrenal glands. No renal stones. No hydronephrosis. Severe atherosclerosis. Normal appendix. No abscess. There is stool throughout the colon. No bowel obstruction. There are scattered colonic diverticula. No ascites. Urinary bladder is distended and is normal. The prostate measures 5.5 cm. IMPRESSION: 1.Emphysema 2.Cholecystectomy 3.Stable large hepatic lesion 4.Constipation with diverticulosis 5.Severe atherosclerosis 6.A preliminary report was given at 1:29 AM This exam was performed using automated exposure control, adjustment of mA or kV according to patient size, and/or use of iterative reconstruction technique. Electronically signed by Lewis Sosa 04/30/2019 4:41 AM
[2019-04-30] MEDS ORDERED: SODIUM CHLORIDE 0.9% INJ ONE (04:55)
[2019-04-30] MEDS ORDERED: PROTONIX IV ONE (04:55)
[2019-04-30] MEDS: ZOSYN 3.375 GM in NS 50 ML IV SCH ×3 (05:15→21:25)
--- NOTE | 2019-04-30 05:30 | Diag Imaging Result Doc PS360 ---
EXAM: CHEST-PORTABLE HISTORY: leukocytosis TECHNIQUE: Chest single view COMPARISON: 04/26/2019 FINDINGS: Poor inspiratory effort with atelectasis or a tiny infiltrate in the right lung base. No change in the right-sided portacatheter. Heart is mildly prominent. No consolidation. Right pleural thickening versus small effusion. IMPRESSION: Stable chest Electronically signed by Lewis Sosa 04/30/2019 5:27 AM
[2019-04-30] MEDS: HYDROCODONE/APAP 7.5-325/15 ML PO PRN (06:24)
[2019-04-30 14:40] LABS: BASO# 0.04 X1000 (0.0-0.2); BASO% 0.2 % (0.0-0.8); EOS# 0.08 X1000 (0.0-0.7); EOS% 0.3 % (0.0-10.0); HEMATOCRIT 17.7 % (42.0-52.0); IMM GRAN% 0.4 % (0.0-0.5); LYMPH# 1.15 X1000 (1.2-3.4); LYMPH% 4.8 % (20.5-51.1); MCH 22.9 PG (27-31); MCHC 29.9 g/dL (33-37); MCV 76.6 FL (81-99); MONO# 1.17 X1000 (0.11-0.59); MONO% 4.9 % (1.7-9.3); MPV 9.1 FL (7.4-10.4); NEUT# 21.31 X1000 (1.4-6.5); NEUT% 89.4 % (42.2-75.2); PLT 439 X1000 (130-400); RBC 2.31 XMIL (4.7-6.1); RDW 21.5 % (11.5-14.5); WBC 23.85 X1000 (4.8-10.8)
[2019-04-30 14:49] LABS: LYMPHS 5 % (21-51); SEGS 95 % (42-75)
[2019-04-30 14:50] LABS: TARGET CELLS 1+
[2019-04-30 14:51] LABS: HYPOCHROM 2+; MICROCYTOSIS OCCASIONAL; OVALOCYTES OCCASIONAL
[2019-04-30 14:57] LABS: HEMOGLOBIN 5.3 g/dL (14.0-18.0)
[2019-04-30] MEDS ORDERED: BENADRYL PO ONE (15:01)
[2019-04-30] MEDS ORDERED: TYLENOL PO ONE (15:01)
[2019-04-30] MEDS ORDERED: NS 500 ML IV ONE (15:01)
[2019-05-01] MEDS: HYDROCODONE/APAP 7.5-325/15 ML PO PRN ×4 (01:59→23:11)
[2019-05-01] MEDS: ZOSYN 3.375 GM in NS 50 ML IV SCH ×4 (03:13→20:01)
[2019-05-01] MEDS: ZOFRAN IV PRN (13:46)
[2019-05-02] MEDS: ZOSYN 3.375 GM in NS 50 ML IV SCH ×4 (05:12→19:06)
[2019-05-02 06:56] LABS: BASO# 0.06 X1000 (0.0-0.2); BASO% 0.3 % (0.0-0.8); EOS% 0.5 % (0.0-10.0); HEMATOCRIT 20.5 % (42.0-52.0); IMM GRAN# 0.11 X1000 (0.0-0.04); IMM GRAN% 0.5 % (0.0-0.5); LYMPH# 1.16 X1000 (1.2-3.4); LYMPH% 5.7 % (20.5-51.1); MCH 23.3 PG (27-31); MCHC 29.3 g/dL (33-37); MCV 79.5 FL (81-99); MONO# 1.49 X1000 (0.11-0.59); MONO% 7.3 % (1.7-9.3); MPV 9.2 FL (7.4-10.4); NEUT# 17.58 X1000 (1.4-6.5); NEUT% 85.7 % (42.2-75.2); PLT 449 X1000 (130-400); RBC 2.58 XMIL (4.7-6.1); RDW 20.8 % (11.5-14.5)
[2019-05-02 07:22] LABS: ALBUMIN 2.9 g/dL (3.5-5.0); CALCIUM 8.3 mg/dL (8.8-10.2); CREATININE 1.5 mg/dL (0.7-1.2); POTASSIUM 4.8 mmol/L (3.5-5.1); TOTAL BILIRUBIN 0.5 mg/dL (0.20-1.00); TOTAL PROTEIN 5.6 g/dL (6.3-8.3)
[2019-05-02] MEDS: HYDROCODONE/APAP 7.5-325/15 ML PO PRN ×3 (07:45→19:48)
[2019-05-02 09:40] LABS: ANISOCYTOSIS 3+; LYMPHS 6 % (21-51); MICROCYTOSIS 1+; MONO 3 % (1-9); SEGS 91 % (42-75)
[2019-05-02 09:41] LABS: POIKILOCYTOSIS OCCASIONAL
[2019-05-03] MEDS: ZOSYN 3.375 GM in NS 50 ML IV SCH ×4 (00:41→18:50)
[2019-05-03] MEDS: HYDROCODONE/APAP 7.5-325/15 ML PO PRN ×2 (00:41→09:00)
[2019-05-03] MEDS: ZOFRAN IV PRN ×2 (00:56→09:12)
[2019-05-03] MEDS ORDERED: ATIVAN IV PRN (09:41)
[2019-05-03] MEDS: DURAGESIC 25 MICROGM/HR PATCH TD SCH (09:56)
[2019-05-03] MEDS: MORPHINE IV PRN ×2 (09:59→23:25)
[2019-05-03] MEDS ORDERED: LORAZEPAM ORAL CONCENTRATE PO PRN (10:00)
--- NOTE | 2019-05-03 11:49 | HISTORY AND PHYSICAL ---
HISTORY OF PRESENT ILLNESS: Readmission of Marko Whitney, who came in the hospital and was discharged on 04/29 only to come back later the day of 04/29 with issues of hypotension and vomiting. He has a history of adenocarcinoma, COPD from longstanding smoking. He has an outlet obstruction of his stomach, he has stent put in there between his stomach and his duodenum. He has refused any therapy, surgical or chemotherapy. So, he got back to the [facility], where he was going to stay, and then he got hypotensive, passed some bloody black stools, and was sent back over here to be readmitted. PAST MEDICAL HISTORY: ALLERGIES: No allergies. REVIEW OF SYSTEMS: Has had weight loss, general malaise, fatigue, some confusion, anxiety, poor eating habits, frequent nausea, vomiting coffee-grounds lately. The vomiting has been Gastroccult positive, stools is positive likewise. So, he was admitted to the hospital. PHYSICAL EXAMINATION: GENERAL: Unchanged from his previous exam. He is pale, slightly apprehensive. HEENT: Pupils were PERRL. SC was white. Nares patent. Oropharynx was negative. Dry mucosa. CHEST: Bilateral breath sounds diminished. Increased AP diameter. CARDIOVASCULAR EXAM: Regular rhythm and rate. S1, S2 normal. ABDOMEN: Obese. Not tender. Bowel sounds are present. No masses were felt. EXTREMITIES: Cool to touch, minimal pulses. NEUROLOGICAL: Symmetrical. ADMITTING DIAGNOSIS: 1. Stomach cancer with some stomach obstruction with a stent in place. 2. Profound anemia. So, he was put back to bed and we will resume his previous therapy. The database is unchanged from his previous discharge summary earlier. cc: Charlie Hua MD
[2019-05-03] MEDS: DUONEB (A & A) INH PRN ×2 (16:33→20:26)
[2019-05-03] MEDS ORDERED: BLISTEX MEDICATED BERRY LIP BALM TOP PRN (22:44)
[2019-05-04] MEDS: ZOSYN 3.375 GM in NS 50 ML IV SCH ×4 (00:36→18:09)
[2019-05-04] MEDS: DUONEB (A & A) INH PRN ×4 (02:35→22:27)
[2019-05-04] MEDS: MORPHINE IV PRN ×3 (03:41→18:07)
[2019-05-04] MEDS: ZOFRAN IV PRN ×2 (08:11→18:08)
--- NOTE | 2019-05-04 13:33 | PROVIDER DOCUMENTATION ---
This chart was entered by Traci Machado Scribe, acting as scribe for Mor Adams CRNP. 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 pt went back to [facility] at 1330, bp was low so pt was given bolus fluids, and daughter [facility] had no other labs to compare so they had pt sent to er for anemia. pt non ill in appearance, a&ox3 and no distress. Location of Pain/Injury: reports: none Quality of Pain: reports: none <Mor Adams - Last Filed: 05/04/19 13:33> - General Chief Complaint: General Adult Stated Complaint: Low H & H Time Seen by Provider: 04/29/19 21:48 Allergies/Adverse Reactions: Patient Allergies Allergy/AdvReac Type Severity Reaction Status Date / Time No Known Allergies Allergy Verified 02/02/18 13:37 Home Medications: Home Medication List Medication Instructions Recorded Confirmed Last Taken Type Budesonide/Formoterol Inhaler 2 puff INH RTBID inhaler 04/29/19 04/30/19 Unknown Rx [Symbicort 80/4.5 Microgm Inhaler] Hydrocodone/Acetaminophen 10 ml PO Q6-8H PRN PRN #120 ml 04/29/19 04/30/19 Unknown Rx [Hydrocodon-Acetamin 7.5-325/15] Lorazepam Oral Concentrate 2 ml PO Q8H PRN 30 Days #60 ml 04/29/19 04/30/19 Unknown Rx Lorazepam [Ativan] 2 mg PO Q8H PRN PRN #30 tab 04/29/19 04/30/19 Unknown Rx Polyethylene Glycol 3350 [Miralax] 17 gm PO DAILY powder, packet 04/29/19 04/30/19 Unknown Rx Sucralfate [Carafate Liquid] 1 gm PO BID udc 04/29/19 04/30/19 Unknown Rx Tamsulosin [Flomax] 0.4 mg PO QHS cap 04/29/19 04/30/19 Unknown Rx Review of Systems - Adult - REVIEW OF SYSTEMS - ADULT Constitutional: reports: no symptoms reported. denies: chills, fever Eyes: reports: no symptoms reported Ears, Nose, Mouth & Throat: reports: no symptoms reported Cardiovascular: reports: no symptoms reported. denies: chest pain Respiratory: reports: no symptoms reported. denies: cough Gastrointestinal: reports: no symptoms reported. denies: abdominal pain Genitourinary: reports: no symptoms reported. denies: dysuria, hematuria Musculoskeletal: reports: no symptoms reported Integumentary: reports: no symptoms reported Neurological: reports: no symptoms reported. denies: dizziness/vertigo, headac he/migraines Psychiatric: reports: no symptoms reported Endocrine: reports: no symptoms reported Hematologic/Lymphatic: reports: see HPI, low blood count. denies: blood clots, easy bruising, prolonged bleeding Allergic/Immunologic: reports: no symptoms reported All Other Systems: Reviewed and Negative <Mor Adams - Last Filed: 05/04/19 13:33> Past History - Adult - PAST MEDICAL HISTORY-ADULT Review of Records: reports: Old Records Reviewed, Nursing Assessment Review, Medications Reviewed, Social history reviewed & non-contributory. Major Childhood Illnesses: reports: denies history Cardiovascular: reports: murmur Respiratory: reports: COPD Gastrointestinal: reports: cancer (liver and stomach) Obstetrical/Gynecological: reports: denies history Genitourinary: reports: denies history Musculoskeletal: reports: denies history Neurological: reports: denies history Endocrine/Immune: reports: denies history Other Conditions: reports: denies history - PRIOR SURGERIES/PROCEDURES Surgical/Procedure History: reports: reviewed, not pertinent - IMMUNIZATION STATUS Childhood Immunizations: See Nurse Assessment Flu Vaccine: See Nurse Assessment - FAMILY HISTORY Family History: reviewed, not pertinent - SOCIAL HISTORY Smoking: non-smoker Substance Use: none/never Living Situation: care facility <Mor Adams - Last Filed: 05/04/19 13:33> Physical Exam-General - PHYSICAL EXAM-ADULT Initial Vital Signs Reviewed: Yes - CONSTITUTIONAL General Appearance: appears well, alert, no apparent distress - EYES Eyes: PERRL/EOMI, pink conjunctivae - HEAD, EARS, NOSE, MOUTH & THROAT HENMT: normocephalic/atraumatic, moist mucous membranes, normal ENT inspection - NECK Neck: non-tender, full range of motion, supple, normal inspection - RESPIRATORY Respiratory: chest non-tender, lungs clear, normal breath sounds - CARDIOVASCULAR Cardiovascular: normal peripheral pulses, regular rate, rhythm, systolic murmur (hx of critical aortic stenosis) - GASTROINTESTINAL (ABDOMEN) Abdominal Exam: normal bowel sounds, non tender, distended. negative: soft, guarding, rigid - LYMPHATIC Lymphatic: no adenopathy - MUSCULOSKELETAL Back Exam: normal inspection, no CVA tenderness, no vertebral tenderness Extremity: normal range of motion, non-tender, normal inspection Peripheral Pulses: radial (R): 2+, radial (L): 2+ - SKIN Integumentary: normal turgor, warm/dry, pallor. negative: normal color, swelling, tenderness, warm - NEUROLOGIC Neurologic: grossly normal, no motor/sensory deficits - PSYCHIATRIC Psych/Mental Status: normal mood/affect, normal thought content, normal thought process, oriented x 3 <Mor Adams - Last Filed: 05/04/19 13:33> Progress - PLAN OF CARE/RESULTS Progress/Plan/Lab Results: Vital Signs - 8 hr 04/29/19 21:29 04/29/19 22:05 04/29/19 22:57 Temperature 98.4 F Pulse Rate 94 H 93 H 95 H Respiratory Rate 18 15 17 Blood Pressure 104/56 115/51 116/44 O2 Sat by Pulse Oximetry 93 L 96 99 04/30/19 00:10 04/30/19 01:15 Temperature 98.5 F Pulse Rate 92 H 92 H Respiratory Rate 18 18 Blood Pressure 107/38 110/41 O2 Sat by Pulse Oximetry 100 98 Laboratory Results - last 24 hr 04/29/19 04/29/19 04/29/19 11:12 22:09 22:09 WBC 21.93 H RBC 3.11 L Hgb 7.0 L D Hct 23.4 L D MCV 75.2 L MCH 22.5 L MCHC 29.9 L RDW Std Deviation 21.6 H Plt Count 576 H MPV 8.8 Immature Gran % (Auto) 0.6 H Neut % (Auto) 85.9 H Lymph % (Auto) 6.8 L Wells % (Auto) 6.2 Eos % (Auto) 0.3 Baso % (Auto) 0.2 Immature Gran # (Auto) 0.13 H Neut # (Auto) 18.84 H Lymph # (Auto) 1.50 Wells # (Auto) 1.36 H Eos # (Auto) 0.06 Baso # (Auto) 0.04 Sodium 132 L Potassium 4.9 Chloride 90 L Carbon Dioxide 32 Anion Gap 10 BUN 72 H D Creatinine 1.4 H Estimated GFR/1.73 m2 49 BUN/Creatinine Ratio 51 Glucose 126 H Calculated Osmolality 287 Calcium 8.5 L Total Bilirubin 0.20 AST 18 ALT 22 Alkaline Phosphatase 138 H Total Protein 6.5 Albumin 3.2 L Globulin 3.0 Albumin/Globulin Ratio 1.0 Plasma Lactate 1.6 Urine Source Urine Color Urine Clarity Urine pH Ur Specific [place] Urine Protein Urine Ketones Urine Blood Urine Nitrite Urine Bilirubin Urine Urobilinogen Urine Microscopic RBC Urine WBC Urine Microscopic WBC Ur Epithelial Cells Urine Crystals Urine Bacteria Urine Casts Urine Yeast Urine Glucose Blood Type Antibody Screen 04/29/19 04/29/19 22:09 22:10 WBC RBC Hgb Hct MCV MCH MCHC RDW Std Deviation Plt Count MPV Immature Gran % (Auto) Neut % (Auto) Lymph % (Auto) Wells % (Auto) Eos % (Auto) Baso % (Auto) Immature Gran # (Auto) Neut # (Auto) Lymph # (Auto) Wells # (Auto) Eos # (Auto) Baso # (Auto) Sodium Potassium Chloride Carbon Dioxide Anion Gap BUN Creatinine Estimated GFR/1.73 m2 BUN/Creatinine Ratio Glucose Calculated Osmolality Calcium Total Bilirubin AST ALT Alkaline Phosphatase Total Protein Albumin Globulin Albumin/Globulin Ratio Plasma Lactate Urine Source CLEAN CATCH Urine Color YELLOW Urine Clarity CLEAR Urine pH 5.0 Ur Specific [place] 1.015 Urine Protein NEGATIVE Urine Ketones NEGATIVE Urine Blood 1+ A Urine Nitrite NEGATIVE Urine Bilirubin NEGATIVE Urine Urobilinogen NORMAL Urine Microscopic RBC <10 Urine WBC NEGATIVE Urine Microscopic WBC 0-2 Ur Epithelial Cells <10 Urine Crystals NONE SEEN Urine Bacteria 2+ Urine Casts NONE SEEN Urine Yeast NONE SEEN Urine Glucose NEGATIVE Blood Type B POSITIVE Antibody Screen NEGATIVE Orders Category Date Time Status Meraz Cath Insertion ORDERED Care 04/29/19 22:56 Active Intake and Output-Strict ORDERED Care 04/29/19 22:56 Active Notify MD/GIANNI/BEA for exam NOW Care 04/29/19 22:56 Active Repeat Vital Signs .Blood Pressure Care 04/29/19 22:56 Active Repeat Vital Signs .Heart Rate Care 04/29/19 22:56 Active Repeat Vital Signs .Oxygen Saturation Care 04/29/19 22:56 Active Repeat Vital Signs .Respiratory Rate Care 04/29/19 22:56 Active Repeat Vital Signs .Temp Care 04/29/19 22:56 Active CHEST-PORTABLE [RAD] Stat Exams 04/30/19 00:[address] ABDOMEN/PELVIS W/O CONTRAST [CT] Stat Exams 04/29/19 23:59 Taken CBC WITH ELECTRONIC DIFF [HEME] Stat Lab 04/29/19 22:09 Completed COMPREHENSIVE METABOLIC PANEL [CHEM] Stat Lab 04/29/19 22:09 Completed LACTATE, PLASMA [CHEM] Timed Lab 04/29/19 11:12 Completed TYPE & SCREEN [BBK] Stat Lab 04/29/19 22:09 Completed UA NIMS W/REFLEX CULT PL [URINALYSIS] Stat Lab 04/29/19 22:10 Completed URINE CULTURE [RM] Routine Lab 04/29/19 23:12 Ordered 0.9% Sodium Chloride Inj [Ns] 1,000 ml Med 04/29/19 22:56 Discontinued IV As Directed mls/hr 0.9% Sodium Chloride Inj [Ns] 500 ml Med 04/29/19 22:56 Discontinued IV 999 mls/hr Hydrocodone/APAP 7.5-325/15 ml Med 04/29/19 22:46 Discontinued 15 ml PO NOW ONE Piperacillin/Tazobactam [Zosyn] 3.375 gm Med 04/29/19 22:57 Discontinued 0.9% Sodium Chloride Inj [Ns] 50 ml IV NOW Vancomycin 1 gm/Ns Med 04/29/19 22:56 Discontinued 1 gm in 250 ml IV NOW Result Diagrams: 04/29/19 22:09 04/29/19 22:09 - XRAY 1 XRAY Study: Chest (increased lower lobe markings, cannot rule out pneumonia) - CONSULTS/PCP/HOSPITALIST Notification #1 *Consult/PCP/Hospitalist*: Dr. Hua Time Discussed: 01:45 Consult Disposition: Admit <Donald Espinoza - Last Filed: 04/30/19 01:47> - PLAN OF CARE/RESULTS Progress/Plan/Lab Results: Vital Signs - 8 hr 04/29/19 21:29 04/29/19 22:05 Temperature 98.4 F Pulse Rate 94 H 93 H Respiratory Rate 18 15 Blood Pressure 104/56 115/51 O2 Sat by Pulse Oximetry 93 L 96 Orders Category Date Time Status CBC WITH ELECTRONIC DIFF [HEME] Stat Lab 04/29/19 22:17 Ordered COMPREHENSIVE METABOLIC PANEL [CHEM] Stat Lab 04/29/19 22:17 Ordered HH [HGB AND HCT] [HEME] Stat Lab 04/29/19 22:09 Stop Req TYPE & SCREEN [BBK] Stat Lab 04/29/19 22:17 Ordered Result Diagrams: 05/02/19 06:10 05/02/19 06:10 - REASSESSMENT Reassessment #1 Time Reassessed: 22:00 Status: unchanged (discussed labs with patient and family) Reassessment #2 Time Reassessed: 00:00 Status: unchanged (patient denies any needs, possible admission pending radiology results) Reassessment #3 Time Reassessed: 01:00 Status: unchanged (Dr Espinoza to bedside) - CHANGE OF SHIFT REPORT (ED Provider) 1 Report Given and Care Transferred to:: Dr Espinoza Time of Transfer: 01:07 Items Pending: XRAY Results, CT/MRI Results <Mor Adams - Last Filed: 05/04/19 13:33> Departure <Donald Espinoza - Last Filed: 04/30/19 01:47> - Departure Date of Disposition Decision: 04/30/19 Time of Disposition Decision: 01:45 Certified Medical Emergency: Emergent - Critical Care Note This patient required my direct & personal management of CC.: No <Mor Adams - Last Filed: 05/04/19 13:33> - Departure DIAGNOSIS: Hyponatremia Acute renal failure (ARF) Qualifiers: Acute renal failure type: unspecified Qualified Code(s): N17.9 - Acute kidney failure, unspecified Anemia Qualifiers: Anemia type: iron deficiency Iron deficiency anemia type: unspecified iron deficiency Qualified Code(s): D50.9 - Iron deficiency anemia, unspecified Stomach cancer Qualifiers: Malignant neoplasm of stomach location: unspecified location Qualified Code(s): C16.9 - Malignant neoplasm of stomach, unspecified UTI (urinary tract infection) Qualifiers: Urinary tract infection type: site unspecified Hematuria presence: with hematuria Qualified Code(s): N39.0 - Urinary tract infection, site not specified; R31.9 - Hematuria, unspecified Leukocytosis Qualifiers: Leukocytosis type: unspecified Qualified Code(s): D72.829 - Elevated white blood cell count, unspecified Disposition: ADMITTED INPATIENT 09 Condition: Critical Attestation - Physician/ STEPHANIE Attestation Patient care was provided by Advanced Practice Provider:: Yes Advanced Practice Provider:: Mor Adams Advanced Practice Provider documentation review:: The Mid-level provider documentation, treatment plan and medical decision making was reviewed by the physician who agrees with all treatment and medical decision making by the MLP. The physician spent face to face time with patient:: Yes (Dr Espinoza) Advanced Practice Provider documentation review:: Supervising physician onsite and consulted in the evaluation and care of this patient. The physician did have a face to face encounter with the patient. <Mor Adams - Last Filed: 05/04/19 13:33> This chart was documented by the indicated scribe, (Traci Machado Scribe) and accurately reflects the services I performed and decisions made by Angie witt Reagan R., CRNP, as attested by the provider's signature.
[2019-05-04 16:17] LABS: BASO# 0.04 X1000 (0.0-0.2); BASO% 0.2 % (0.0-0.8); EOS# 0.08 X1000 (0.0-0.7); EOS% 0.4 % (0.0-10.0); HEMATOCRIT 19.5 % (42.0-52.0); IMM GRAN# 0.09 X1000 (0.0-0.04); IMM GRAN% 0.5 % (0.0-0.5); LYMPH# 1.44 X1000 (1.2-3.4); LYMPH% 7.2 % (20.5-51.1); MCH 24.2 PG (27-31); MCHC 30.3 g/dL (33-37); MCV 79.9 FL (81-99); MONO# 1.35 X1000 (0.11-0.59); MONO% 6.8 % (1.7-9.3); NEUT# 16.91 X1000 (1.4-6.5); NEUT% 84.9 % (42.2-75.2); PLT 518 X1000 (130-400); RBC 2.44 XMIL (4.7-6.1); RDW 22.4 % (11.5-14.5); WBC 19.91 X1000 (4.8-10.8)
[2019-05-04 16:21] LABS: HEMOGLOBIN 5.9 g/dL (14.0-18.0)
[2019-05-04 16:28] LABS: CALCIUM 8.3 mg/dL (8.8-10.2); CREATININE 1.6 mg/dL (0.7-1.2); POTASSIUM 4.3 mmol/L (3.5-5.1); TOTAL BILIRUBIN 0.5 mg/dL (0.20-1.00); TOTAL PROTEIN 6.5 g/dL (6.3-8.3)
[2019-05-04 16:43] LABS: BASO 2 % (0-1); LYMPHS 7 % (21-51); MONO 7 % (1-9); SEGS 83 % (42-75)
[2019-05-04 16:44] LABS: ANISOCYTOSIS 2+; OVALOCYTES OCCASIONAL
[2019-05-05] MEDS: ZOFRAN IV PRN ×2 (00:18→09:16)
[2019-05-05] MEDS: MORPHINE IV PRN ×4 (00:18→23:01)
[2019-05-05] MEDS: ZOSYN 3.375 GM in NS 50 ML IV SCH ×4 (00:19→19:31)
--- NOTE | 2019-05-05 07:39 | PROGRESS NOTE ---
DATE: 05/04/2019 The patient today is much more like himself, argumentative and obstinate. OBJECTIVE: VITAL SIGNS: His temperature is 97.6 degrees, pulse was 87, respiratory rate 19, BP 104/50, O2 sat 97% on 3 liters. LABORATORY: He has a 19,910 white count, 85% polys. Hemoglobin 5.9. He denies any hematemesis or melena. Platelet count is 518,000. He is still not eating reflected by his albumin of 3. Sodium is 127, potassium 4.3, chloride 93, CO2 22, BUN 62, creatinine 1.6. GFR is 39. Glucose 127. Calcium 8.3. AST 95, ALT 92, alkaline phosphatase 139. Total protein 6.5, albumin 3. He is drinking some water but generally is not doing much. We are encouraging him to eat. Seems to be doing better on the pain patch medication. cc: Charlie Hua MD
--- NOTE | 2019-05-05 07:42 | PROGRESS NOTE ---
DATE: 05/03/2019 VITAL SIGNS: His temperature is 96 degrees, pulse was 91, respiratory rate was 16, BP 99/59, O2 sat was 96 nasal cannula. GENERAL: Still pale. Not eating. Cantankerous. On examination, he has no fluid in his lower extremities or back. ABDOMEN: Belly is soft, distended, but not tight. No organomegaly. HEENT: Eyes are pale sclerae. Seems weak. Family is at his bedside. cc: Charlie Hua MD
--- NOTE | 2019-05-05 07:47 | PROGRESS NOTE ---
DATE: 05/02/2019 Mr. 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 Today, his sodium was 134, potassium 4.8, chloride 99, CO2 23, BUN 64, creatinine 1.5. Estimated GFR 45. BUN creatinine ratio is 43. Glucose 126. Calcium 8.3. Alkaline phosphatase was 125. AST 55, ALT 19. Albumin 2.9. VITAL SIGNS: Temperature 97.6 degrees, pulse 94, respiratory rate 17, BP 109/54, O2 sat 93 on 3 liters. He had a chest x-ray which showed some improvement, but otherwise no significant change. He is not particularly complaining of pain. He is just nauseated, no appetite. PHYSICAL EXAMINATION: LUNGS: Bilateral breath sounds. CARDIAC: Regular rhythm and rate. ABDOMEN: Soft. No hepatosplenomegaly. EXTREMITIES: No edema. cc: Charlie Hua MD
--- NOTE | 2019-05-05 07:49 | PROGRESS NOTE ---
DATE: 05/01/2019 Patient with terminal adenocarcinoma of the stomach. He continues to deteriorate. He has not had any significant bleeding again, melena or hematochezia. VITAL SIGNS: Temperature 98 degrees, pulse 100, respiratory rate was 18, BP 106/49, O2 sat 98. Patient continues to anoretic, weak and tired, hard to get out of bed. Not really complaining much about pain. We continue to observe. cc: Charlie Hua MD
--- NOTE | 2019-05-05 07:53 | PROGRESS NOTE ---
DATE: 05/05/2019 SUBJECTIVE: His chest x-ray shows a poor inspiration with atelectasis or tiny infiltrate in the right lung base. There are no changes in the right-sided [id number]. Heart is mildly prominent. No consolidation. Right pleural thickening versus small effusion. He had some vomit today. We Gastroccult'd it, it was positive. His CBC was lowest hematocrit of 17.7, 23.85 was his white count, platelet count is 439. He had some vomiting the previous day and his numbers sort of reflect that. Not eating. Drinking poorly. Nothing else to report. cc: Charlie Hua MD
[2019-05-06] MEDS: ZOFRAN IV PRN (00:29)
[2019-05-06] MEDS: ZOSYN 3.375 GM in NS 50 ML IV SCH ×3 (00:29→12:51)
[2019-05-06] MEDS: DUONEB (A & A) INH PRN ×3 (03:36→15:24)
[2019-05-06] MEDS: DURAGESIC 25 MICROGM/HR PATCH TD SCH (10:01)
[2019-05-06 12:21] LABS: OCCULT BLOOD 1 POSITIVE (NEGATIVE)
[2019-05-06 15:13] VITALS: BP 108/56
--- NOTE | 2019-05-06 16:20 | DISCHARGE SUMMARY ---
ADMISSION DATE: 05/02/2019 DISCHARGE DATE: 05/06/2019 HISTORY OF PRESENT ILLNESS: Mr. 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 The patient has been doing well with his untreated adenocarcinoma of the stomach. He has been bleeding. Bleeding has been an issue with him. Sometimes he bleeds down to a hematocrit of 19 and 20, but he has been tolerating that hematocrit. He has had several iron infusions to keep him making blood. He was treated initially for a possible pneumonia, but suspect that was atelectasis. The patient has never run a fever. His white count has been elevated, however. His urine culture showed no growth. His last x-ray on 04/30/2019 just showed poor inspirational effort with atelectasis or a tiny infiltrate in the right lung base. No change in the right-sided Port-A-Cath. Heart is mildly enlarged. No consolidation. Right pleural thickening versus small effusion. He is not eating particularly well. He drinks liquids. He has issues swallowing at times. He is maintained on a soft diet. He knows what he is able to put through his shunt, so I would give him only things that he has had in the past and has succeeded in the past. He is having some problems with balance. He has some twitching when he tries to get up and it seems to go away after he has sat up for a while. We have blamed it alternatively on Phenergan and Zofran. We have stopped his antibiotics, but this continues to be a minor problem. The patient has been having issues with pain. He tries to "Saran Jacky" the pain, but we have encouraged him to take pain medicines and anxiety medicines have helped. We have had to use a Meraz catheter and he is doing well with that. He is going for rehab on his cancerous condition. cc: Charlie Hua MD
[2019-05-06] MEDS: MORPHINE IV PRN (16:25)
== END 2019-05-06 18:06 | DRG 375 ==
LOC: P.MEDSURG 21:28 → P.ED 21:28
PROVIDERS: ADMIT Internal Medicine; ATTEND Internal Medicine
CPT/HCPCS: 36430; 71010; 71045; 74176; 80053; 81001; 82270; 82271; 83605; 85014; 85018; 85025; 86850; 86900; 86901; 86920; 87088; 94640; 94761; 96365; 96367; 96375; 99285; A9270; C9113; J2270; J2405; J2543; J3370; J7030; J7040; P9016; S0164